=== PATIENT | male | born 1970 | race Two or more races ===

== ENCOUNTER 2016-12-21 17:57 | Emergency (ER) | payer OTHER ==
[2016-12-21 17:57] VITALS: BP 119/80
[~2016-12-21 17:57] MED LIST: HYDR-971 PO
--- NOTE | 2016-12-21 18:31 | PHYS DOC ---
General Chief Complaint: LACERATION/AVULSION Stated Complaint: LACERATION LFT HAND Time Seen by MD: 18:24 Source: patient, family Problems: History of Present Illness Initial Comments Patient here with for injury to the left hand. Patient was cutting some vegetables and the tip of a knife stuck into the hypothenar eminence area of the left hand. He did wash this out at home. This happened about half-hour prior to arrival in the ER. He says it generally stop bleeding, but when he tries to move around starts to bleed again. He has no distal complaints of weakness numbness or chilling within the fingers of the left hand. There is no other injuries noted or reported. Other than wash this out at home he is done nothing for this at home and notes no factors that increase or decrease any symptoms he might have. Patient's past medical history remarkable for hypertension seasonal allergies. He is nonsmoker and nonuser of ethanol. He says his immunizations including tetanus are up-to-date with the [employer]. Allergies: Coded Allergies: anthrax vaccine (Verified Allergy, Unknown, 06/18/16) Past Medical History Medical History: hypertension Social History Smoker: non-smoker Alcohol: none Review of Systems Constitutional: no symptoms reported Musculoskeletal: no symptoms reported Skin: see HPI Psychiatric/Neurological: no symptoms reported Physical Exam General Appearance: WD/WN, no apparent distress Extremities: normal range of motion, other Neurologic/Psychiatric: no motor/sensory deficits, alert, normal mood/affect, oriented x 3 Skin: normal color, warm/dry Comments Generally this a well-developed well-nourished male in no acute distress. Vitals are as noted. Pertinent findings on physical exam shows the patient have about a 2 cm horizontal laceration located over the mid hypothenar eminence on the palmar aspect of the left hand. There is minimal active bleeding. This appears to involve skin and subcutaneous tissue only. He has good refill, sensation, and warmth of the fourth and fifth digits. He has good flexion and extension at all sites including the MCP, PIP, and DIP joints in those digits as well. He is able to spread the fingers without difficulty. There is no other injuries noted. Remainder of physical exam is clinically unremarkable. Orders, Labs, Meds Old charts noticing a prior ER visit for rib fracture. 1850 Patient resting comfortably in the ED. Discussed with patient and his the need for suture closure. The wound does gape with motion and I think will heal better with sutures. They voice understanding and are agreeable to same. Under sterile technique and 2% lidocaine without epinephrine laceration was explored fine skin is cutaneous tissue involvement only. It was irrigated with saline. It previously been copiously cleaned by nursing staff as well. Laceration was closed with 5 sutures of 3-0 nylon. Patient tolerated well. We discussed home care including watching for signs infection clean redness swelling drainage of pus or red streaks. This was a fairly clean knife with copious irrigation, no obvious contamination, and I think we can defer antibiotics at this time. He is up-to-date on his tetanus. We discussed the need for sutures out in 10-14 days or return to the ER sooner as needed if worsen anyway. We will place an appropriate wound dressing and give him a wrist splint as well. He voices understanding the discharge plan, and has Ultram at home that he can use for pain. He looks well, in no acute discomfort distress, okay for discharge home at this time. GIOVANNI MILES MD Dec 21, 2016 18:31
== END 2016-12-21 19:05 | disposition home or self-care (01) ==
LOC: ER 17:57
DX: S61.412A Laceration without foreign body of left hand, initial encounter (principal); I10 Essential (primary) hypertension; Z88.7 Allergy status to serum and vaccine; W26.0XXA Contact with knife, initial encounter; Y93.89 Activity, other specified; Y99.8 Other external cause status; Y92.89 Other specified places as the place of occurrence of the external cause
CPT/HCPCS: 12001; 99283-25